=== PATIENT | female | born 1960 | race American Indian/Alaskan Native ===

== ENCOUNTER 2020-03-24 16:22 | Emergency (ER) | payer OTHER ==
--- NOTE | 2020-03-24 17:11 | Emergency Department Report ---
ED General Adult HPI - General Chief complaint: Dyspnea/Respdistress Stated complaint: CHF PUI?: No Time Seen by Provider: 03/24/20 16:50 Source: EMS ( EMS documentation not available at time of chart dictation ), RN notes reviewed Mode of arrival: Stretcher Limitations: No Limitations - History of Present Illness Initial comments: The patient was evaluated in the emergency department for symptoms described in the history of present illness. He/she was evaluated in the context of the global COVID-19 pandemic, which necessitated consideration that the patient might be at risk for infection with the virus that causes COVID-19. Institutional protocols and algorithms that pertain to the evaluation of patients at risk for COVID-19 are in a state of rapid change based on information released by regulatory bodies including the CDC and federal and state organizations. These policies and algorithms were followed during the patient's care in the emergency department. Please note that these policies, procedures and recommendations changed on a rapid basis. During the entire history and physical examination, I had on complete personal protective equipment. The patient is a 59-year-old female. She typically follows with the [facility]. She has a history of obesity, diabetes, hypertension, high cholesterol congestive heart failure. She is not quite sure what her ejection fraction is. She presents to the ER today with a complaint of painless shortness of breath. She endorses a sensation of "feeling fluffy", unintentional weight gain of 10 to 12 pounds, new onset 2 pillow orthopnea, lower extremity swelling, and abdominal wall swelling. She has a central chest tightness, and right shoulder tightness. The chest tightness is intermittent, started at 11:00 this morning, does not radiate to the back, arms or neck. There is no vomiting or diaphoresis. No travel, surgery, oral contraceptive use, denies DVT and pulmonary embolism risk factors. No aspirin consumption within the past 7 days. Reports negative stress test at this hospital last year. Also admits to atraumatic right-sided shoulder pain/throbbing, associated with heavy lifting from her father. Shortness of breath constant, worsens with physical exertion and decreases with rest. Right shoulder discomfort is resolved at this time. No active chest pain at this time. Denies fever, loss of taste, loss of smell, diarrhea, known exposure to Covid contacts. -: Gradual, days(s) Location: abdomen, left, right, lower extremity Consistency: intermittent Improves with: rest Worsens with: movement - Related Data Home Medications Medication Instructions Recorded Confirmed Last Taken AtorvaSTATin [Lipitor] 40 mg PO QHS 03/24/20 03/24/20 Unknown Fluconazole [Diflucan TAB] 150 mg PO QDAY 03/24/20 03/24/20 Unknown Furosemide [Lasix] 40 mg PO DAILY 03/24/20 03/24/20 Unknown Glimepiride [Amaryl] 4 mg PO DAILY 03/24/20 03/24/20 Unknown Insulin NPH Hum/Reg Insulin Hm 20 unit SQ BID 03/24/20 03/24/20 Unknown [HumuLIN 70-30 Vial] Lipitor 03/24/20 Unknown Losartan [Cozaar] 100 mg PO QDAY 03/24/20 03/24/20 Unknown Meloxicam [Mobic] 15 mg PO DAILY 03/24/20 03/24/20 Unknown NIFEdipine [Nifedipine ER] 30 mg PO DAILY 03/24/20 03/24/20 Unknown Pregabalin [Lyrica] 25 mg PO DAILY 03/24/20 03/24/20 Unknown Spironolactone [Aldactone] 25 mg PO QDAY 03/24/20 03/24/20 Unknown carvediloL [Coreg] 6.25 mg PO BID 03/24/20 03/24/20 Unknown cloNIDine [Catapres] 0.2 mg PO DAILY 03/24/20 03/24/20 Unknown metOLazone [Metolazone] 5 mg PO DAILY 03/24/20 03/24/20 Unknown Allergies Allergy/AdvReac Type Severity Reaction Status Date / Time No Known Allergies Allergy Unverified 03/24/20 17:05 ED Review of Systems ROS: Stated complaint: CHF Other details as noted in HPI Constitutional: denies: fever Eyes: denies: eye discharge ENT: denies: congestion Respiratory: shortness of breath, SOB with exertion, SOB at rest Cardiovascular: as per HPI, dyspnea on exertion, orthopnea, edema Gastrointestinal: denies: abdominal pain, hematemesis, melena, hematochezia Musculoskeletal: myalgia, other (Lower extremity swelling). denies: back pain Skin: denies: lesions Neurological: weakness. denies: headache Hematological/Lymphatic: denies: easy bleeding ED Past Medical Hx - Past Medical History Previous Medical History?: Yes Hx Hypertension: Yes Hx Congestive Heart Failure: Yes Hx Diabetes: Yes Additional medical history: high cholesterol, neuropathy - Social History Smoking Status: Never Smoker Substance Use Type: None - Medications Home Medications: Home Medications Medication Instructions Recorded Confirmed Last Taken Type AtorvaSTATin [Lipitor] 40 mg PO QHS 03/24/20 03/24/20 Unknown History Fluconazole [Diflucan TAB] 150 mg PO QDAY 03/24/20 03/24/20 Unknown History Furosemide [Lasix] 40 mg PO DAILY 03/24/20 03/24/20 Unknown History Glimepiride [Amaryl] 4 mg PO DAILY 03/24/20 03/24/20 Unknown History Insulin NPH Hum/Reg Insulin Hm 20 unit SQ BID 03/24/20 03/24/20 Unknown History [HumuLIN 70-30 Vial] Lipitor 03/24/20 Unknown History Losartan [Cozaar] 100 mg PO QDAY 03/24/20 03/24/20 Unknown History Meloxicam [Mobic] 15 mg PO DAILY 03/24/20 03/24/20 Unknown History NIFEdipine [Nifedipine ER] 30 mg PO DAILY 03/24/20 03/24/20 Unknown History Pregabalin [Lyrica] 25 mg PO DAILY 03/24/20 03/24/20 Unknown History Spironolactone [Aldactone] 25 mg PO QDAY 03/24/20 03/24/20 Unknown History carvediloL [Coreg] 6.25 mg PO BID 03/24/20 03/24/20 Unknown History cloNIDine [Catapres] 0.2 mg PO DAILY 03/24/20 03/24/20 Unknown History metOLazone [Metolazone] 5 mg PO DAILY 03/24/20 03/24/20 Unknown History ED Physical Exam - General Limitations: No Limitations General appearance: alert, in no apparent distress, obese - Head Head exam: Present: atraumatic, normocephalic - Eye Eye exam: Present: normal appearance, EOMI. Absent: nystagmus - ENT ENT exam: Present: normal exam, normal orophraynx, mucous membranes moist, normal external ear exam - Neck Neck exam: Present: normal inspection, full ROM. Absent: tenderness, meningismus - Respiratory Respiratory exam: Present: rales, accessory muscle use. Absent: wheezes, rhonchi, stridor - Cardiovascular Cardiovascular Exam: Present: regular rate, normal rhythm, normal heart sounds, JVD. Absent: bradycardia, tachycardia, irregular rhythm, systolic murmur, diastolic murmur, rubs, gallop - GI/Abdominal GI/Abdominal exam: Present: soft. Absent: distended, tenderness, guarding, pul satile mass - Extremities Exam Extremities exam: Present: normal inspection, full ROM, other (2+ pulses noted in the bilateral upper and lower extremities. There is no palpable cord. negative Homans sign. Muscular compartments are soft. The pelvis is stable.). Absent: pedal edema, calf tenderness - Back Exam Back exam: Present: normal inspection, full ROM. Absent: tenderness, CVA tenderness (R), CVA tenderness (L), paraspinal tenderness, vertebral tenderness - Neurological Exam Neurological exam: Present: alert, other (No facial droop. Tongue midline. Extraocular movements intact bilaterally. Facial sensation intact to light touch in V1, V2, V3 distribution bilaterally. 5 and a 5 strength in 4 extremities. Sensation intact to light touch in 4 extremities.) - Psychiatric Psychiatric exam: Present: normal affect, normal mood - Skin Skin exam: Present: warm, dry, intact, normal color. Absent: rash ED Course Vital Signs 03/24/20 03/24/20 03/24/20 16:46 17:59 18:20 Temperature 98.4 F Pulse Rate 89 94 H 91 H Respiratory 18 18 Rate Blood Pressure 199/105 179/94 Blood Pressure 194/97 [Right] O2 Sat by Pulse 98 89 Oximetry - Reevaluation(s) Reevaluation #1: 03/24/20 17:10 Differential diagnosis, including but not limited to: Congestive heart failure exacerbation, hypertensive cardiomyopathy, electrolyte derangement, thyroid derangement Assessment and plan: 59-year-old female, with a history of congestive heart failure, likely presenting with a congestive heart failure exacerbation, manifest by tachypnea, orthopnea, crackles, rales, JVD, lower extremity edema, sensation of abdominal wall swelling, and peripheral edema. She is not currently tachycardic, tachypneic or hypoxic, she denies DVT and pulmonary embolism risk factors, and she is low risk by Wells criteria for pulmonary embolism. She endorses compliance with her medications, and denies dietary indiscretions. She denies fever, loss of taste and smell, and reports no Covid contacts. Place patient on alarm security or surveillance monitor, obtain EKG, x-ray of the chest, reconcile patient's medications, appropriate laboratory studies, and reassess after initial data points. Have discussed this plan of care with the patient, who verbalized understanding, and is amenable to this plan of care. Reevaluation #2: 03/24/20 17:32 Patient has multiple accounts. Other /medical record: [id number] Admitted to this hospital and July 2019 for acute CHF and chest pain as well as nosebleed. Found to have ejection fraction of 20 to 25%, on echocardiogram, with an EF of 23% on nuclear stress test, negative nuclear stress test for ischemia, presumptively diagnosed with nonischemic cardiomyopathy. EKG from July 2019 grossly unchanged from today. 03/24/20 18:52 Patient while sleeping desaturates to 89%. 2 L of oxygen are applied by nursing team. Laboratory studies reviewed and appreciated. Lasix and antihypertensive therapy ordered by myself. Contacted [place] coordinating physician, Dr. Quintanilla, Have discussed the patient's history, physical, pertinent laboratory studies and imaging studies. We anticipate transfer to a [place] facility for management of acute CHF exacerbation. Reevaluation #3: 03/24/20 19:35 Dr Jeronimo to admit to [facility] Patient updated on plan of care. She is amenable to hospitalization. ED Medical Decision Making - Lab Data Result diagrams: 03/24/20 17:21 03/24/20 17:21 Vital Signs 03/24/20 16:46 Temperature 98.4 F Pulse Rate 89 Respiratory 18 Rate Blood Pressure 199/105 O2 Sat by Pulse 98 Oximetry Lab Results 03/24/20 03/24/20 03/24/20 Range/Units 17:21 17:21 17:21 WBC 11.8 H (4.5-11.0) K/mm3 RBC 3.61 L (3.65-5.03) M/mm3 Hgb 11.0 (10.1-14.3) gm/dl Hct 31.9 (30.3-42.9) % MCV 88 (79-97) fl MCH 30 (28-32) pg MCHC 34 (30-34) % RDW 14.6 (13.2-15.2) % Plt Count 326 (140-440) K/mm3 Lymph % (Auto) 23.6 (13.4-35.0) % [place] % (Auto) 5.1 (0.0-7.3) % Eos % (Auto) 2.1 (0.0-4.3) % Baso % (Auto) 2.6 H (0.0-1.8) % Lymph # (Auto) 2.8 (1.2-5.4) K/mm3 [place] # (Auto) 0.6 (0.0-0.8) K/mm3 Eos # (Auto) 0.3 (0.0-0.4) K/mm3 Baso # (Auto) 0.3 H (0.0-0.1) K/mm3 Seg Neutrophils % 66.6 (40.0-70.0) % Seg Neutrophils # 7.8 H (1.8-7.7) K/mm3 PT 12.7 (12.2-14.9) Sec. INR 0.96 (0.87-1.13) Sodium 139 (137-145) mmol/L Potassium 4.4 (3.6-5.0) mmol/L Chloride 103.7 (98-107) mmol/L Carbon Dioxide 26 (22-30) mmol/L Anion Gap 14 mmol/L BUN 18 H (7-17) mg/dL Creatinine 0.8 (0.6-1.2) mg/dL Estimated GFR > 60 ml/min BUN/Creatinine Ratio 23 % Glucose 226 H (65-100) mg/dL Calcium 8.9 (8.4-10.2) mg/dL Magnesium 1.90 (1.7-2.3) mg/dL Total Bilirubin 0.70 (0.1-1.2) mg/dL AST 17 (5-40) units/L ALT 10 (7-56) units/L Alkaline Phosphatase 78 (35-129) units/L Total Creatine Kinase (30-135) units/L Troponin T (0.00-0.029) ng/mL NT-Pro-B Natriuret Pep (0-900) pg/mL Total Protein 5.5 L (6.3-8.2) g/dL Albumin 3.2 L (3.9-5) g/dL Albumin/Globulin Ratio 1.4 % 03/24/20 Range/Units 17:21 WBC (4.5-11.0) K/mm3 RBC (3.65-5.03) M/mm3 Hgb (10.1-14.3) gm/dl Hct (30.3-42.9) % MCV (79-97) fl MCH (28-32) pg MCHC (30-34) % RDW (13.2-15.2) % Plt Count (140-440) K/mm3 Lymph % (Auto) (13.4-35.0) % [place] % (Auto) (0.0-7.3) % Eos % (Auto) (0.0-4.3) % Baso % (Auto) (0.0-1.8) % Lymph # (Auto) (1.2-5.4) K/mm3 [place] # (Auto) (0.0-0.8) K/mm3 Eos # (Auto) (0.0-0.4) K/mm3 Baso # (Auto) (0.0-0.1) K/mm3 Seg Neutrophils % (40.0-70.0) % Seg Neutrophils # (1.8-7.7) K/mm3 PT (12.2-14.9) Sec. INR (0.87-1.13) Sodium (137-145) mmol/L Potassium (3.6-5.0) mmol/L Chloride (98-107) mmol/L Carbon Dioxide (22-30) mmol/L Anion Gap mmol/L BUN (7-17) mg/dL Creatinine (0.6-1.2) mg/dL Estimated GFR ml/min BUN/Creatinine Ratio % Glucose (65-100) mg/dL Calcium (8.4-10.2) mg/dL Magnesium (1.7-2.3) mg/dL Total Bilirubin (0.1-1.2) mg/dL AST (5-40) units/L ALT (7-56) units/L Alkaline Phosphatase (35-129) units/L Total Creatine Kinase 320 H (30-135) units/L Troponin T 0.022 (0.00-0.029) ng/mL NT-Pro-B Natriuret Pep 4716 H (0-900) pg/mL Total Protein (6.3-8.2) g/dL Albumin (3.9-5) g/dL Albumin/Globulin Ratio % - EKG Data -: EKG Interpreted by Me EKG shows normal: sinus rhythm - EKG Data When compared to previous EKG there are: previous EKG unavailable 03/24/20 17:12 This is a sinus rhythm, 79 bpm. Left axis deviation, with a left anterior fascicular block. There is left ventricular hypertrophy, poor R wave progression, atrial enlargement, motion artifact, T wave abnormalities. The QTC is prolonged. This is an abnormal EKG. This is not a STEMI. No prior for comparison. - Radiology Data Radiology results: report reviewed, image reviewed CHEST 1 VIEW 03/24/2020 5:35 PM INDICATION / CLINICAL INFORMATION: CHF. COMPARISON: 07/15/2019 chest x-ray FINDINGS: SUPPORT DEVICES: None. HEART / MEDIASTINUM: Mild cardiomegaly. LUNGS / PLEURA: Mild interstitial edema. No pneumothorax. ADDITIONAL FINDINGS: No significant additional findings. IMPRESSION: 1. Mild cardiomegaly with mild interstitial pulmonary edema. Signer Name: Gabriel Casey MD Signed: 03/24/2020 4:42 PM Workstation Name: [email or web address] Critical Care Time: Yes Critical care time in (mins) excluding proc time.: 35 Critical care attestation.: If time is entered above; I have spent that time in minutes in the direct care of this critically ill patient, excluding procedure time. ED Disposition Clinical Impression: Hypoxia, Hypertensive urgency, History of chest pain Acute CHF Qualifiers: Heart failure type: unspecified Qualified Code(s): I50.9 - Heart failure, unspecified Disposition: DC/TX-02 SHRT-TRM GEN HOSP IP Is pt being admited?: No Does the pt Need Aspirin: Yes Condition: Fair Referrals: [facility] [Other] - 3-5 Days Heart Score - HEART Score History: Moderately suspicious EKG: Non-specific Age: 45-65 Risk factors: > 3 risk factors or hx of atherosclerotic disease Troponin: < normal limit HEART Score: 5 - Critical Actions Critical Actions: 4-6 pts:12-16.6% risk of adverse cardiac event. Should be admitted
[2020-03-24 17:35] LABS: Basophils # (Auto) 0.3 K/mm3 (0.0-0.1); Basophils % (Auto) 2.6 % (0.0-1.8); Eosinophils # (Auto) 0.3 K/mm3 (0.0-0.4); Eosinophils % (Auto) 2.1 % (0.0-4.3); Hematocrit 31.9 % (30.3-42.9); Lymphocytes # (Auto) 2.8 K/mm3 (1.2-5.4); Lymphocytes % (Auto) 23.6 % (13.4-35.0); Mean Corpuscular HGB Conc 34 % (30-34); Mean Corpuscular Volume 88 fl (79-97); Monocytes # (Auto) 0.6 K/mm3 (0.0-0.8); Monocytes % (Auto) 5.1 % (0.0-7.3); Platelet Count 326 K/mm3 (140-440); Red Blood Count 3.61 M/mm3 (3.65-5.03); Red Cell Distribution Width 14.6 % (13.2-15.2)
--- NOTE | 2020-03-24 17:46 | XRay Report ---
CHEST 1 VIEW 03/24/2020 5:35 PM INDICATION / CLINICAL INFORMATION: CHF. COMPARISON: 07/15/2019 chest x-ray FINDINGS: SUPPORT DEVICES: None. HEART / MEDIASTINUM: Mild cardiomegaly. LUNGS / PLEURA: Mild interstitial edema. No pneumothorax. ADDITIONAL FINDINGS: No significant additional findings. IMPRESSION: 1. Mild cardiomegaly with mild interstitial pulmonary edema. Signer Name: Gabriel Casey MD Signed: 03/24/2020 5:42 PM Workstation Name: [id number]
[2020-03-24 17:58] LABS: Alanine Aminotransferase 10 units/L (7-56); Albumin 3.2 g/dL (3.9-5); BUN/Creatinine Ratio 23; Blood Urea Nitrogen 18 mg/dL (7-17); Calcium 8.9 mg/dL (8.4-10.2); Hemolysis Index 27
[2020-03-24 18:10] LABS: INR 0.96 (0.87-1.13)
[2020-03-24] MEDS ORDERED: cloNIDine 0.2 MG TAB PO STA (18:11)
[2020-03-24] MEDS ORDERED: FUROSEMIDE 40 MG/4 ML INJ IV ONE (18:11)
[2020-03-24] MEDS ORDERED: carvediloL 6.25 MG TAB PO STA (18:11)
[2020-03-24] MEDS ORDERED: NON-FORMULARY EACH (Losartan [Cozaar] 100 MG Tablet) PO STA (18:12)
[2020-03-24] MEDS ORDERED: SPIRONOLACTONE 25 MG TAB PO STA (18:13)
[2020-03-24] MEDS ORDERED: NIFEdipine XL 30 MG TAB PO STA (18:14)
[2020-03-24] MEDS ORDERED: LOSARTAN 50 MG TAB PO STA (18:14)
[2020-03-24] MEDS ORDERED: ASPIRIN 81 MG TAB CHEW PO ONE (18:53)
[2020-03-25 00:31] VITALS: BP 155/79
== END 2020-03-25 00:30 | disposition short-term general hospital (02) ==
LOC: ED 16:22
DX: I11.0 Hypertensive heart disease with heart failure (principal); I50.9 Heart failure, unspecified; R09.02 Hypoxemia; I16.0 Hypertensive urgency; E11.9 Type 2 diabetes mellitus without complications; E78.00 Pure hypercholesterolemia, unspecified; Z79.899 Other long term (current) drug therapy; Z87.898 Personal history of other specified conditions
CPT/HCPCS: 36415; 71045; 80053; 82550; 83735; 83880; 84484; 85025; 85610; 93005; 96374; 99285; J1940